=== PATIENT | male | born 2000 | race African-American/Black ===

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

== ENCOUNTER 2021-02-19 15:50 | Emergency (ER) | payer OTHER, SELFPAY ==
[2021-02-19 15:55] VITALS: BP 154/100; PULSE 109; RESP 14; TEMP 37.1; O2SAT 99
--- NOTE | 2021-02-19 15:58 | ED.GENADULT ---
HPI - General Adult General Chief complaint: Upper Respiratory Infection Stated complaint: sore throat Time Seen by Provider: 02/19/21 15:59 Source: patient Mode of arrival: ambulatory Limitations: no limitations History of Present Illness HPI narrative: 20-year-old male patient presents to the [facility] with complaints of a sore throat for the past 4 days along with stuffy nose. Patient has not been vaccinated against COVID denies any previous COVID infection that he is aware of. Denies any fevers, body aches or chills. Patient states he has been taking NyQuil for symptoms. Related Data Home Medications Medication Instructions Recorded Confirmed No Home Medications 02/19/21 02/19/21 Allergies Allergy/AdvReac Type Severity Reaction Status Date / Time No Known Allergies Allergy Verified 02/19/21 16:05 Review of Systems Review of Systems: CONSTITUTIONAL: Denies fever, chills, or sweats. EYES: Denies visual changes, redness, or discharge. ENT: Positive rhinorrhea, denies congestion, positive sore throat, denies otalgia. CARDIOVASCULAR: Denies chest pain, palpitations, or edema. RESPIRATORY: Denies cough or dyspnea. GASTROINTESTINAL: Denies abdominal pain, nausea, vomiting, or diarrhea. GENITOURINARY: Denies dysuria or hematuria. SKIN: Denies rash or itching. MUSCULOSKELETAL: Denies back pain, joint pain, or myalgia. NEUROLOGIC: Denies headache, numbness, or weakness. PSYCHIATRIC: Denies anxiety or depression. [facility] Past Medical History Medical History (Updated 02/19/21 @ 16:19 by JEFF Carbajal) No significant past medical history Comments At the time of my signature I agree with nursing past medical history, surgical, social, and family history. There is no relevant family history pertinent to the presenting complaint. Exam Narrative: GENERAL: Well-appearing, well-nourished, and in no acute distress. HEAD: Normocephalic, atraumatic. EYES: PERRLA and EOMI. ENT: Nares with erythema and edema noted bilaterally, no rhinorrhea or epistaxis. Mucous membranes moist. Posterior pharynx no erythema, tonsillar injury, exudates or lesions present. Bilateral TMs are clear with no erythema or foreign bodies in the canal. NECK: Supple. No lymphadenopathy CHEST: Clear to auscultation. No respiratory distress. HEART: Regular rate and rhythm. No murmur heard. Normal peripheral pulses. ABDOMEN: Soft, nontender, nondistended, normal active bowel sounds. EXTREMITIES: Normal range of motion. No edema. SKIN: Warm, dry, no rash. NEURO: No focal deficits. Alert and oriented x3. Course Course Level of Care: Express Care Visit Reevaluation(s) Reevaluation #1: Reevaluated patient notified him that his strep test today is negative. He needs to continue to quarantine until he receives his COVID results. He may take [id number] medication for symptoms. Discussed with him that if he does come back positive he needs to quarantine for 5 days from onset of symptoms and then may return to work. Patient verbalized understanding denies any other questions or concerns at this time. Date: 02/19/21 Time: 16:21 Vital Signs Vital signs: Vital Signs Temperature 37.1 C 02/19/21 15:55 Pulse Rate 109 H 02/19/21 15:55 Respiratory Rate 14 02/19/21 15:55 Blood Pressure 154/100 H 02/19/21 15:55 Pulse Oximetry 99 02/19/21 15:55 Temperature 37.1 C 02/19/21 16:06 Pulse Rate 109 H 02/19/21 16:06 Respiratory Rate 14 02/19/21 16:06 Blood Pressure 154/100 H 02/19/21 16:06 Pulse Oximetry 99 02/19/21 16:06 Vital signs reviewed. The patient has been informed that they may have pre-hypertension or Hypertension based on a BP reading in the department. I recommend that the patient call the primary care provider listed on their discharge instructions or a physician of their choice this week to arrange follow up for further evaluation of possible pre-hypertension or Hypertension Medical Decision Making Differen
[2021-02-19 16:06] VITALS: BP 154/100; PULSE 109; RESP 14; TEMP 37.1; O2SAT 99
[2021-02-20 15:55] LABS: SARS-CoV-2 RNA PCR Positive
== END 2021-02-19 16:23 | disposition home or self-care (01) ==
PROVIDERS: Emergency Provider Nurse Practitioner Family; PCP Pediatrics
DX: U07.1 COVID-19 (principal)
CPT/HCPCS: 87081; 87880; 99213; C9803; G0463; U0003; U0005

== ENCOUNTER 2023-12-17 12:58 | Emergency (ER) | payer SELFPAY ==
[2023-12-17 13:25] VITALS: BP 163/95; PULSE 100; RESP 16; TEMP 37.1; O2SAT 99
--- NOTE | 2023-12-17 14:17 | ED.URI ---
HPI - URI/Sore Throat General Chief Complaint: Upper Respiratory Infection Stated Complaint: fever/throat/cough History of Present Illness HPI Narrative: 23-year-old male presented for complaint of sore throat, cough and nasal congestion for over 1 week. He endorses exposure to strep and pneumonia in his home. Taking Mucinex and DayQuil. Denies shortness of breath, wheezing, nausea, vomiting, diarrhea or lethargy. Related Data Allergies Allergy/AdvReac Type Severity Reaction Status Date / Time No Known Allergies Allergy Verified 02/19/21 16:05 Review of Systems Review of Systems: CONSTITUTIONAL: Denies body aches, fever, chills, or sweats. EYES: Denies visual changes, redness, or discharge. ENT: reports rhinorrhea, congestion, denies otalgia. CARDIOVASCULAR: Denies chest pain, palpitations, or edema. RESPIRATORY: reports cough Denies dyspnea. GASTROINTESTINAL: Denies abdominal pain, nausea, vomiting, or diarrhea. SKIN: Denies rash MUSCULOSKELETAL: Denies back pain, joint pain, or myalgia. [facility] Past Medical History Medical History No significant past medical history Exam Narrative: GENERAL: mildly Ill-appearing, no acute distress. EYES: conjunctivae clear ENT: Mucous membranes moist. TM pearly collins with normal light reflex bilaterally; no tragal tenderness. Oropharynx erythematous without lesions. Tonsils not enlarged and without exudate. No drooling, no hoarseness, no trismus, uvula midline. No tripod positioning, hot potato voice, or soft palate swelling. NECK: Supple. No lymphadenopathy CHEST: Clear to auscultation, breath sounds equal. No respiratory distress, speaks in full sentences. HEART: Regular rate and rhythm. No murmur heard. SKIN: Warm, dry, no rash. NEURO: Alert and oriented x3. Course Course Emergency Course: Patient is aware of diagnosis, understands and agrees to treatment plan. Anticipatory guidance given. Patient agrees to follow-up as directed and is aware of reasons to seek care at the emergency department. Portions of this record may have been created with voice recognition software Level of Care: Express Care Visit Vital Signs Vital signs: Vital Signs Temperature 98.8 F 12/17/23 13:25 Pulse Rate 100 12/17/23 13:25 Respiratory Rate 16 12/17/23 13:25 Blood Pressure 163/95 H 12/17/23 13:25 Pulse Oximetry 99 12/17/23 13:25 Oxygen Delivery Room Air 12/17/23 13:25 Temperature 98.8 F 12/17/23 13:25 Pulse Rate 100 12/17/23 13:25 Respiratory Rate 16 12/17/23 13:25 Blood Pressure 163/95 H 12/17/23 13:25 Pulse Oximetry 99 12/17/23 13:25 Oxygen Delivery Room Air 12/17/23 13:25 MDM - URI/Sore Throat MDM Narrative Medical decision making narrative: neg strep result reviewed with pt. Advise supportive treatments. reviewed Rx's. Patient is appropriate for outpatient treatment and follow-up. Differential Diagnosis Differential diagnosis: Likely upper respiratory infection, viral infection and pharyngitis Discharge Plan Discharge Clinical Impression: Upper respiratory infection, Bronchitis Patient Disposition: Home, Self-Care Condition: Stable Instructions: Antibiotic Form, Acute Bronchitis (ED) Additional Instructions: Your blood pressure reading was elevated (above 120/80) please follow-up with your primary care provider for further evaluation and management. If you develop worsening Blood Pressure symptoms, (headache, vision changes, dizziness, vomiting, chest pain, etc) go to the ER. Call 911. Rapid strep swab was negative today You will be notified in a few days if the culture comes back positive for strep, and appropriate antibiotics will be called in at that time. if symptoms are due to a viral illness, it is not treated with antibiotics. Viral symptoms can be present for up to 10-14 days. Acute bronchitis can be contagious because it is usually caused by infection with a virus or bacteria. It is usually for a few days but you can be contagious for up to one week. Avoid crowds until you do not have a fever and symptoms are improved Take medication as directed Recommend Flonase spray and Zyrtec (or Claritin/Genevieve) over the counter Cough syrup may cause drowsiness; avoid driving or take it at night time. Coricidin HBP if you have hypertension Tylenol 1000mg every 8 hours as needed for pain Symptomatic treatment includes: rest, fluids, and increase humidity of the air at home. Follow up with your primary care provider in 1 week Go to the ER for worsening symptoms or concerns Prescriptions: New azithromycin [Zithromax Z-Danny] 250 mg tablet See Rx Instructions .ROUTE .COMPLEX Qty: 6 0RF Rx Instructions: For 250 mg dose pack: take 500 mg today (day 1), then 250 mg for 4 days (days 2-5) prednisone 50 mg tablet 50 mg PO DAILY Qty: 5 0RF Follow-up/Referrals: PHYSICIAN,OPERATIONS EXPERT [Primary Care Provider] - Time of Disposition: 14:24
[2023-12-17 14:40] LABS: EDSTREPNEGPOS1 Negative (Negative)
== END 2023-12-17 14:30 | disposition home or self-care (01) ==
PROVIDERS: Emergency Provider Nurse Practitioner Family
DX: J06.9 Acute upper respiratory infection, unspecified (principal); J40 Bronchitis, not specified as acute or chronic
CPT/HCPCS: 87081; 87880; 99213; G0463